=== PATIENT | female | born 1975 | race Caucasian/White ===

== ENCOUNTER 2019-01-10 15:51 | Day surgery (SDC) | payer SELFPAY ==
[2019-01-10] VITALS (9 sets, daily range): BP systolic 93–117; BP diastolic 43–61; PULSE 59–70; TEMP 98.2
[~2019-01-10] VITALS: Ht 167.6 cm; Wt 86.0 kg
[~2019-01-10 15:51] MED LIST: AMBIEN 10MG10 MG PO; CIPRO 500MG TA500 MG PO; CYMBALTA PO; DILAUDID 4MG TAB4 MG PO; ELAVIL100 MG PO; MS CONTIN 115 MG/TAB PO; NO HOME MEDICATIONS; NORCO 325 MG-51 TAB PO; PROVENTIL0.09 MG/A1; ZANAFLEX2 MG PO; [UNRECOGNIZED DRUG - OTHER] VG
--- NOTE | 2019-01-10 19:00 | NUR ---
Received patient from PACU per bed, is drowsy. Has Oxygen on at 2L/nc. IVF infusing to right forearm without redness or swelling. Spouse at bedside. Connected to [employer].
--- NOTE | 2019-01-10 20:00 | NUR ---
Patient awake, using her cell phone. Assisted to bathroom, voids 400cc of blood tinged urine. Reports burning and pain with urination. Back to bed. Provided turkey sandwich, pudding and water. Denies pain at this time.
--- NOTE | 2019-01-10 20:36 | NUR ---
Patient reporting pain to right flank and lower abdominal discomfort. Medicated with [place] 5/325mg 1 tab po now. Tolerated diet without nausea or vomiting.
--- NOTE | 2019-01-10 21:15 | NUR ---
Patient reports the one pain pill worked. Spouse informed this nurse that Dr Flynn gave him the prescription for pain meds for this patient. He has had them filled for home use.
--- NOTE | 2019-01-10 22:15 | NUR ---
Discharge instructions reviewed with patient. Encouraged to drink 8-10 glasses of water or more, rest for next 24hrs, call Dr Abraham office if problems arise. Removed IV site, angiocath intact. Patient dressed and ready to discharge. Has voided x3 since surgery.
--- NOTE | 2019-01-10 22:30 | NUR ---
Taken via w/c to private car for discharge. Patient belongings sent with her as well as discharge instructions.
== END 2019-01-10 22:30 | disposition home or self-care (01) ==
LOC: SDCO 15:51 → SURG 15:56 → SDCO 22:30
DX: N20.1 Calculus of ureter (principal); Z87.891 Personal history of nicotine dependence; J45.909 Unspecified asthma, uncomplicated
CPT/HCPCS: OP; C1769; J0690; J1100; J1170; J2405; J2550; J2704; J3010; Q9967

== ENCOUNTER 2020-06-17 20:17 | Emergency (ER) | payer BC ==
[~2020-06-17] VITALS: Ht 167.6 cm; Wt 82.3 kg
[2020-06-17 20:26] VITALS: TEMP 98
[2020-06-17 20:51] LABS: COLLECTION METHOD CLEAN CATCH
[2020-06-17 20:59] LABS: BASO % 0.7 % (0.0-2.0); EOS % 0.7 % (0-4.0); GRAN # 3.8 (1.4-6.5); GRAN % 68.5 % (42.2-75.2); HEMOGLOBIN 11.2 g/dl (12.5-16.0); LYMPH # 1.3 (1.2-3.4); LYMPH % 24.1 % (20.0-51.0); MEAN CELL VOLUME 88 fl (80.0-100.0); MEAN CORPUSCULAR HEMOGLOBIN 29 pg (27.0-31.0); MEAN CORPUSCULAR HGB CONC 33 g/dl (33.0-37.0); MEAN PLATELET VOLUME 9.9 fl (7.4-10.4); MONO # 0.3 (0.1-0.6); MONO % 5.8 % (1.7-9.3); PLATELET COUNT 251 K/mm3 (130-400); RED BLOOD COUNT 3.89 M/mm3 (4.10-5.30); REDCELL DISTRIBUTION WIDTH-CV 14.4 % (11.5-14.5)
[2020-06-17 21:07] LABS: ALBUMIN 4.3 gm/dL (3.5-5.0); BILIRUBIN,TOTAL 0.4 mg/dL (0.0-1.0); C-REACTIVE PROTEIN 1.5 mg/dL (0.0-0.9); CREATININE, serum 1.19 (0.52-1.25); POTASSIUM 3.4 mmol/L (3.4-5.0); TOTAL PROTEIN 7.6 gm/dL (6.4-8.2)
[2020-06-17 21:09] LABS: MUCOUS Present /lpf; PH 5 (5-8); SQUAMOUS EPITHELIAL 0-2 /hpf; URINE APPEARANCE Cloudy; URINE BACTERIA Rare /hpf; URINE BILIRUBIN Negative (NEGATIVE); URINE BLOOD 3+ (NEGATIVE); URINE COLOR Yellow; URINE GLUCOSE Negative (NEGATIVE); URINE KETONE Negative (NEGATIVE); URINE LEUKOCYTE ESTERASE Negative (NEGATIVE); URINE NITRATE Negative (NEGATIVE); URINE PROTEIN(semi-quant) 1+ (NEGATIVE); URINE RBC >50 /hpf; URINE UROBILINOGEN Negative (NEGATIVE)
[2020-06-17] MEDS ORDERED: XANAX 0.5MG0.5 MG PO (21:10)
[2020-06-17 21:11] LABS: HEMATOCRIT 34.4 % (37.0-47.0)
[2020-06-17] MEDS ORDERED: MINIPRESS2 MG (21:11)
[2020-06-17] MEDS ORDERED: TOPAMAX50 MG PO (21:12)
[2020-06-17] MEDS ORDERED: SEROQUEL 1100 MG/TAB PO (21:12)
[2020-06-17] MEDS ORDERED: LEXAPRO 10MG10 MG PO (21:13)
[2020-06-17] MEDS ORDERED: ZOFRAN 4MG T4 MG/TAB PO (22:56)
[2020-06-17] MEDS ORDERED: OMNICEF 300MG300 MG PO (22:56)
[2020-06-17] MEDS ORDERED: NORCO 325 MG-51 TAB PO (22:56)
[2020-06-17 23:15] VITALS: BP 99/73; PULSE 62
== END 2020-06-17 23:19 | disposition home or self-care (01) ==
LOC: COL.ER 20:17
PROVIDERS: Emergency Medicine
DX: N20.2 Calculus of kidney with calculus of ureter (principal); Z98.51 Tubal ligation status
CPT/HCPCS: J2405; J3010; J7030; Q9967

== ENCOUNTER 2020-10-22 11:56 | Emergency (ER) | payer BC ==
[~2020-10-22] VITALS: Ht 167.6 cm; Wt 75.0 kg
[~2020-10-22 11:56] MED LIST changes: +LEXAPRO 10MG10 MG PO; +MINIPRESS2 MG; +OMNICEF 300MG300 MG PO; +SEROQUEL 1100 MG/TAB PO; +TOPAMAX50 MG PO; +XANAX 0.5MG0.5 MG PO; +ZOFRAN 4MG T4 MG/TAB PO
[2020-10-22 12:03] VITALS: TEMP 97.7
[2020-10-22 12:21] LABS: BASO % 0.5 % (0.0-2.0); EOS # 0.2 (0.0-0.7); EOS % 2.2 % (0-4.0); GRAN # 3.7 (1.4-6.5); HEMOGLOBIN 11.4 g/dl (12.5-16.0); LYMPH # 2.9 (1.2-3.4); LYMPH % 40.2 % (20.0-51.0); MEAN CELL VOLUME 87 fl (80.0-100.0); MEAN CORPUSCULAR HEMOGLOBIN 28 pg (27.0-31.0); MEAN CORPUSCULAR HGB CONC 32 g/dl (33.0-37.0); MEAN PLATELET VOLUME 10.5 fl (7.4-10.4); MONO # 0.4 (0.1-0.6); PLATELET COUNT 237 K/mm3 (130-400); RED BLOOD COUNT 4.08 M/mm3 (4.10-5.30); REDCELL DISTRIBUTION WIDTH-CV 15.4 % (11.5-14.5)
[2020-10-22 12:23] LABS: HEMATOCRIT 35.6 % (37.0-47.0)
[2020-10-22 12:49] LABS: ALANINE AMINOTRANSFERASE 14 U/L (4-34); ALBUMIN 4.5 gm/dL (3.5-5.0); ALKALINE PHOSPHATASE 60 U/L (50-136); ANION GAP 11 mmol/L (7-16); AST,SGOT 27 U/L (15-37); BILIRUBIN,TOTAL 0.4 mg/dL (0.0-1.0); BLOOD UREA NITROGEN 12 mg/dL (7-17); CALCIUM 9.7 mg/dL (8.4-10.2); CARBON DIOXIDE 19 mmol/L (22-30); CHLORIDE 109 mmol/L (98-107); CREATININE, serum 0.99 (0.52-1.25); GLUCOSE 101 mg/dL (74-106); POTASSIUM 3.8 mmol/L (3.4-5.0); SODIUM 139 mmol/L (137-145); TOTAL PROTEIN 7.7 gm/dL (6.4-8.2)
[2020-10-22 13:12] LABS: ACETAMINOPHEN < 10 ug/mL (10-30); ALCOHOL(ethanol),MEDICAL < 10 mg/dL; SALICYLATE < 1.0 mg/dL
[2020-10-22 13:41] LABS: TRICYCLIC ANTIDEPRESS URINE NEGATIVE
--- NOTE | 2020-10-22 14:14 | NUR ---
utility worker driver contacted patient's daughter, Cordell [place] #[phone] and confirmed that patient is legally to [facility]ils[facility] Daniels, however, patient has a PFA order from him. Cordell produced copies of PFA and worker placed them on patient's chart. Cordell confirmed that patient has 4 children and they are: Cordell [place] age 20, Mauro [place] #[phone] age 25, Emmanuel [place] age 17, and Serge Mckee age 16. Cordell states that Emmanuel is currently with his father, in [place], [place] and Serge is also with his father that resides out of [facility]. Cordell stated that there were no minors in the home. Worker advised that Cordell and Mauro are patient's legal next of kin to make health care decisions as patient is intubated and provided care update to Cordell.
--- NOTE | 2020-10-22 15:00 | NUR ---
air brake worker contacted daughter, Cordell, and advised that patient is accepted to [facility] and it is being determined which location will accept, [place], [place] or [place]. Cordell stated that she will notify her brother, Mauro. Worker will confirm when location is secured.
[2020-10-22 15:45] VITALS: BP 116/72; PULSE 86
[2020-10-22 16:19] LABS: ARTERIAL BLD GAS O2 SATURATION 99.3 % (92-100); ARTERIAL BLD GAS TCO2 CT 16.9; ARTERIAL BLOOD GAS BASE EXCESS -8.1 (-2-2); ARTERIAL BLOOD GAS PCO2 28.6 mmHg (35-45); ARTERIAL BLOOD GAS pH 7.37 (7.35-7.45)
[2020-10-22 18:35] LABS: COLLECTION METHOD IN
[2020-10-22 18:43] LABS: PH 6 (5-8); SQUAMOUS EPITHELIAL None Seen /hpf; URINE APPEARANCE Clear; URINE BACTERIA None Seen /hpf; URINE BILIRUBIN Negative (NEGATIVE); URINE BLOOD 1+ (NEGATIVE); URINE COLOR Colorless; URINE GLUCOSE Negative (NEGATIVE); URINE KETONE Negative (NEGATIVE); URINE LEUKOCYTE ESTERASE Negative (NEGATIVE); URINE NITRATE Negative (NEGATIVE); URINE PROTEIN(semi-quant) Negative (NEGATIVE); URINE RBC 0-2 /hpf; URINE UROBILINOGEN Negative (NEGATIVE)
--- NOTE | 2020-10-23 09:57 | NUR ---
On 10/22, child protective services social worker notified Cordell that patient was transferring to [facility] in [place], [place] via helicopter. Cordell stated that she would notify her brother. On this date, worker contacted Zenia, child protective services social worker at [place], and provided information on patient's legal next of kin and PFA against her . PFA documents were sent to [place] on 10/22 with the patient's transfer.
== END 2020-10-22 16:00 | disposition short-term general hospital (02) ==
LOC: COL.ER 11:56
PROVIDERS: Emergency Medicine
DX: R41.82 Altered mental status, unspecified (principal); T44.3X5A Adverse effect of other parasympatholytics [anticholinergics and antimuscarinics] and spasmolytics, initial encounter; F32.9 Major depressive disorder, single episode, unspecified; Z20.828 Contact with and (suspected) exposure to other viral communicable diseases; Z32.02 Encounter for pregnancy test, result negative; Z88.6 Allergy status to analgesic agent
CPT/HCPCS: J0330; J2060; J2704; J7030

== ENCOUNTER 2022-02-05 08:53 | Day surgery (SDC) | payer MEDICAID ==
[~2022-02-05] VITALS: Ht 167.6 cm; Wt 89.3 kg
[2022-02-05] MEDS ORDERED: FLAGYL500 MG PO (10:06)
[2022-02-05] MEDS ORDERED: BENADRYL50 MG PO (10:06)
[2022-02-05 10:15] VITALS: BP 118/38; PULSE 64; TEMP 97.4
[2022-02-05 12:35] VITALS: BP 116/68; PULSE 58; TEMP 98.1
--- NOTE | 2022-02-05 12:35 | NUR ---
PT TO [facility] FROM PACU. RECEIVED REPORT FORM LUISA NIXON. VS OBTAINED. REORIENTED PT TO ROOM AND CALL LIGHT. CALL LIGHT WITHIN REACH. PT TOLERATING ICE CHIPS. WILL CONTINUE TO MONITOR PT.
[2022-02-05 12:50] VITALS: BP 110/53; PULSE 60
--- NOTE | 2022-02-05 12:50 | NUR ---
PT TOLERATING ICE CHIPS AND JELLO. STATES PAIN IS TOLERABLE. WILL CONTINUE TO MONITOR PT.
[2022-02-05 13:05] VITALS: BP 114/61; PULSE 59
--- NOTE | 2022-02-05 13:05 | NUR ---
PT STATES SHE IS READY FOR DISCHARGE.
--- NOTE | 2022-02-05 13:10 | NUR ---
IV DC'D. PT TOLERATED WELL.
--- NOTE | 2022-02-05 13:15 | NUR ---
DISCHARGE EDUCATION COMPLETED WITH PT AND HER FIANCE. THEY VERBALIZED UNDERSTANDING OF HOME AND FOLLOW UP CARE. ALL QUESTIONS ANSWERED. DISCHARGE PAPERWORK GIVEN TO PT.
--- NOTE | 2022-02-05 13:25 | NUR ---
PT OFF UNIT PER WHEELCHAIR. PT DISCHARGE TO HOME WITH FIANCE PER PERSONAL VEHICLE.
== END 2022-02-05 13:25 | disposition home or self-care (01) ==
LOC: SDCO 08:53
DX: N20.0 Calculus of kidney (principal); Z98.890 Other specified postprocedural states
CPT/HCPCS: C1769; C2617; J0690; J1100; J1885; J2405; J2704; J3010; J7120; Q9967

== ENCOUNTER → 2022-05-20 | Outpatient (RCR) | payer MEDICAID ==
[~2022-05-20] MED LIST changes: +BENADRYL50 MG PO; +FLAGYL500 MG PO
== END | disposition home or self-care (01) ==
LOC: WSOT
DX: M25.521 Pain in right elbow (principal)

== ENCOUNTER 2022-06-15 08:00 | Outpatient (RCR) | payer MEDICAID | END 2022-06-20 | disposition home or self-care (01) | LOC: WSOT | DX: M25.529 Pain in unspecified elbow (principal) ==

== ENCOUNTER 2022-07-07 14:00 | Outpatient (RCR) | payer MEDICAID | END 2022-07-21 | disposition home or self-care (01) | LOC: WSOT | DX: M25.529 Pain in unspecified elbow (principal) ==

== ENCOUNTER → 2022-07-14 | Outpatient (CLI) | payer MEDICAID | LOC: COL.RAD 11:28 | DX: M50.322 Other cervical disc degeneration at C5-C6 level (principal); M48.02 Spinal stenosis, cervical region; M54.40 Lumbago with sciatica, unspecified side ==

== ENCOUNTER → 2022-12-31 | Outpatient (CLI) | payer MEDICAID | LOC: COL.RAD 11-16 14:00 | DX: M48.02 Spinal stenosis, cervical region (principal); M25.78 Osteophyte, vertebrae | CPT/HCPCS: A9575 ==

== ENCOUNTER 2023-08-22 09:59 | Emergency (ER) | payer SELFPAY ==
[~2023-08-22] VITALS: Ht 167.6 cm; Wt 81.8 kg
[2023-08-22 12:01] LABS: COLLECTION METHOD CLEAN CATCH
[2023-08-22 12:19] LABS: BASO % 0.5 % (0.0-2.0); EOS # 0.1 K/mm3 (0.0-0.7); EOS % 0.7 % (0.0-4.0); GRAN % 70.6 % (42.2-75.2); HEMOGLOBIN 11.3 g/dl (12.5-16.0); LYMPH # 1.8 K/mm3 (1.2-3.4); LYMPH % 21.6 % (20.0-51.0); MEAN CELL VOLUME 87 fl (80.0-100.0); MEAN CORPUSCULAR HEMOGLOBIN 27 pg (27-31); MEAN CORPUSCULAR HGB CONC 31 g/dl (33.0-37.0); MEAN PLATELET VOLUME 10.2 fl (7.4-10.4); MONO # 0.5 K/mm3 (0.1-0.6); MONO % 6.2 % (1.7-9.3); PLATELET COUNT 297 K/mm3 (130-400); RED BLOOD COUNT 4.17 M/mm3 (4.10-5.30); REDCELL DISTRIBUTION WIDTH-CV 15.5 % (11.5-14.5)
[2023-08-22 12:23] LABS: HEMATOCRIT 36.1 % (37.0-47.0)
[2023-08-22 12:38] LABS: PH 5.5 (5.0-8.5); URINE APPEARANCE Clear (CLEAR/HAZY); URINE COLOR Amber (YELLOW); URINE GLUCOSE Negative (NEGATIVE); URINE KETONE 2+ (NEGATIVE); URINE NITRATE Positive (NEGATIVE); URINE PROTEIN(semi-quant) TRACE (NEGATIVE); URINE UROBILINOGEN 0.2 E.U/dL (0.2-1.0)
[2023-08-22 12:38] LABS: ALBUMIN 3.7 gm/dL (3.5-5.0); BILIRUBIN,TOTAL 0.5 mg/dL (0.2-1.2); C-REACTIVE PROTEIN 18.19 mg/dL (0.00-0.50); CALCIUM 9.8 mg/dL (8.4-10.2); CREATININE, serum 0.85 mg/dL (0.57-1.11); POTASSIUM 3.8 mmol/L (3.5-4.5); TOTAL PROTEIN 7.9 gm/dL (6.2-8.1)
[2023-08-22 12:39] LABS: MUCOUS Present (NOT PRESENT); URINE BACTERIA Occasional /hpf (NONE SEEN); URINE BLOOD TRACE-INTACT (NEGATIVE)
[2023-08-22] MEDS ORDERED: ZOFRAN ODT4 MG PO (14:56)
[2023-08-22] MEDS ORDERED: CEFTIN 250250 MG/TAB PO (14:56)
[2023-08-22] MEDS ORDERED: NORCO 325 MG-51 TAB PO (14:56)
[2023-08-22 15:08] VITALS: BP 107/52; PULSE 80; TEMP 98.6
== END 2023-08-22 15:10 | disposition home or self-care (01) ==
LOC: COL.ER 09:59
PROVIDERS: Nurse Practitioner
DX: N10 Acute pyelonephritis (principal); Z28.310 Unvaccinated for COVID-19
CPT/HCPCS: J0696; J1885; J2405; J7030; Q9967